=== PATIENT | male | born 1935 | race Caucasian/White ===

== ENCOUNTER 2021-11-05 10:51 | Outpatient (CLI) | payer MEDICARE | END 2021-11-05 10:52 | disposition home or self-care (01) | LOC: CSHLAB 10:51 | PROVIDERS: ATTEND Internal Medicine Pulmonary Disease | DX: Z20.822 Contact with and (suspected) exposure to COVID-19 (principal); J44.9 Chronic obstructive pulmonary disease, unspecified; R06.00 Dyspnea, unspecified | CPT/HCPCS: 87811 ==